=== PATIENT | male | born 1960 | race Caucasian/White ===

== ENCOUNTER → 2018-09-10 | Outpatient (CLI) | payer BC ==
[~2018-09-10] MED LIST: IOPAMIDOL (ISOVUE-M 300) 15 ML VIAL ONE; LIDOCAINE 1% 300 MG/30 ML SDV ONE
[2018-09-10 10:03] LABS: INR 0.92 (0.83-1.16)
== END ==
LOC: FIMAGING 08:21
PROVIDERS: ATTEND Neurological Surgery
PROC: 3E0R3KZ Introduction of Other Diagnostic Substance into Spinal Canal, Percutaneous Approach (ICD-10-PCS; principal; 2018-09-10)
DX: M47.812 Spondylosis without myelopathy or radiculopathy, cervical region (principal)
CPT/HCPCS: Q9967